=== PATIENT | female | born 2000 | race Caucasian/White ===

== ENCOUNTER 2019-05-27 20:09 | Emergency (ER) | payer BC, OTHER ==
[~2019-05-27] VITALS: Ht 165.1 cm; Wt 63.5 kg
[2019-05-27] MEDS ORDERED: DEXAMETHASONE 10 MG/ML (DECADRON) 1 ML VIAL IM ONE (20:30)
[2019-05-27] MEDS ORDERED: LIDOCAINE 1% INJ 20 ML 20 ML VIAL INJ ONE (20:30)
[2019-05-27] MEDS ORDERED: cefTRIAXone 1,000 MG/2.86 ml vial (IM ONLY) IM ONE (20:30)
--- NOTE | 2019-05-27 20:32 | ED EENT ---
History of Present Illness General Chief Complaint: Oral/Throat Problems Stated Complaint: SORE THROAT, FEVER Source: patient Exam Limitations: no limitations History of Present Illness Date Seen by Provider: May 27, 2019 Time Seen by Provider: 20:29 Initial Comments To ER with reports of sore throat and fever. Fever up to 101.4 at home. No cough. Does have a runny nose. 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 She started her own dosage of Zithromax yesterday for onset of sore throat but it became worse today. Timing/Duration: abrupt Severity: moderate Location: throat Associated Symptoms: fever, sore throat Allergies and Home Medications Allergies Coded Allergies: No Known Drug Allergies (Unverified , 05/27/19) Patient Home Medication List Home Medication List Reviewed: Yes Review of Systems Review of Systems Constitutional: see HPI, fever Eyes: No Symptoms Reported Ears: No Symptoms Reported Nose: no symptoms reported Mouth: no symptoms reported Throat: see HPI, pain, painful swallowing Respiratory: no symptoms reported Cardiovascular: no symptoms reported Musculoskeletal: no symptoms reported Past [id number]-[id number] Hx Patient Social History Recent Foreign Travel: No Contact w/Someone Who Travel: No Physical Exam Height, Weight, BMI Height: '" Weight: lbs. oz. kg; BMI Method: General Appearance: WD/WN, no apparent distress Eyes: bilateral eye normal inspection, bilateral eye PERRL, bilateral eye EOMI Ears: bilateral ear auricle normal, bilateral ear canal normal, bilateral ear TM normal Mouth/Throat: normal mouth inspection, tonsillar exudate, tonsillar swelling; No trismus, No uvula swelling (nor is there uvular deviation to suggest peritonsillar abscess) Neck: lymphadenopathy (R), lymphadenopathy (L) Respiratory: lungs clear, normal breath sounds, no respiratory distress, no accessory muscle use Neurologic/Psychiatric: alert, normal mood/affect, oriented x 3 Skin: normal color, warm/dry Progress/Results/Core Measures Results/Orders My Orders Orders - AVELINA DENNEY APRN Rapid Strep A Screen (05/27/19 20:26) Dexamethasone Injection (Decadron Inject (05/27/19 20:30) Rocephin 1000mg Im (05/27/19 20:30) Lidocaine 1% Inj 20 Ml (Xylocaine 1% Inj (05/27/19 20:30) Departure Impression Primary Impression: Tonsillitis Disposition: HOME, SELF-CARE Condition: Stable Departure-Patient Inst. Decision time for Depature: 20:31 Referrals: NO,LOCAL PHYSICIAN (PCP) Primary Care Physician Patient Instructions: Sore Throat, Adult (DC) Add. Discharge Instructions: 1. Tylenol and ibuprofen for pain and fever control. Drink plenty of fluids to stay hydrated. Finish taking the azithromycin antibiotics as you currently are. You may return to babysitting or school (if either applies) once you have been without a fever for 24 hours All discharge instructions reviewed with patient and/or family. Voiced understanding. Work/School Note: Work Release Form Date Seen in the Emergency Department: May 27, 2019 Return to Work: May 29, 2019 AVELINA DENNEY APRN May 27, 2019 20:32
== END 2019-05-27 21:03 | disposition home or self-care (01) ==
LOC: ER 20:12
DX: J03.90 Acute tonsillitis, unspecified (principal)
CPT/HCPCS: 87430; 96372; 99285